=== PATIENT | female | born 1985 | race Caucasian/White ===

== ENCOUNTER 2020-01-29 13:29 | Emergency (ER) | payer MEDICAID ==
[~2020-01-29] VITALS: Ht 154.9 cm; Wt 97.3 kg
[2020-01-29 13:31] VITALS: BP 135/73
== END 2020-01-29 16:09 | disposition home or self-care (01) ==
LOC: EMS 13:29
DX: S60.221A Contusion of right hand, initial encounter (principal); V09.9XXA Pedestrian injured in unspecified transport accident, initial encounter; Y93.89 Activity, other specified; Y92.89 Other specified places as the place of occurrence of the external cause; Y99.8 Other external cause status